=== PATIENT | male | born 1950 | race Caucasian/White ===

== ENCOUNTER → 2016-09-22 | Outpatient (CLI) | payer MEDICARE, BC ==
--- NOTE | 2016-09-22 12:43 | MR ---
MRI cervical spine and brain without contrast HISTORY: TIA, CVA, imbalanced, G45.9, R26.81 Multiplanar multisequence imaging obtained through the brain and cervical spine, no comparisons Brain MRI: There is no restricted diffusion to suggest subacute ischemia. No hemorrhage or hydrocepha dimas. Corpus callosum, pituitary, cervical medullary junction, cerebellopontine angles are normal. Mil d mucosal disease present within the maxillary sinuses. There are normal vascular flow voids. Periven tricular and subcortical white matter hyperintensities are present on inversion recovery and T2-weigh edgar sequences, there are approximately 50 lesions present. The orbits show symmetric appearance. Ther e is cortical atrophy. Small lacunar infarct left basal ganglia versus Choroidal fissure cyst is susp ected on the left, some minimal associated gliosis is present. IMPRESSION: Nonspecific white matter demyelination likely related to chronic small vessel ischemia. T here is age-related atrophy. Cervical spine MRI: There is spinal curvature present. There is a rotational component. Multilevel sp ondylosis is present, there is associated endplate discogenic marrow signal change. Anterolisthesis g rade 1 C4-5, retrolisthesis grade 1 C3-4. Loss of disc height and signal present at the intervertebra l levels. Cervical vertebral bodies show preserved height. C2-3: No significant foraminal encroachment or central stenosis, no disc herniation C3-4: Posterior extension of endplate disc complex results in moderate to severe central canal stenos is. Uncovertebral joint hypertrophy facet arthropathy results in bilateral foraminal encroachment. C4-5: Left-sided foraminal encroachment is present. Broad-based disc bulge causes only mild anterior mass effect on the thecal sac C5-6: Posterior extension of endplate disc complex results in severe central canal stenosis. There is bilateral foraminal encroachment. C6-7: Right-sided foraminal encroachment is present. Posterior extension of endplate disc complex res ults in moderate to severe central canal stenosis. C7-T1: Unremarkable Cervical cord signal is possibly altered, there may be areas of gliosis at the level of the patient's spinal stenosis. IMPRESSION: Multilevel spinal stenosis, degenerative disc disease, foraminal encroachment. Suspect so me cervical cord signal changes may be present. A Yellow message has been communicated to Tommy Silva DO via the [employer] Critical Result system on 09/22/2016 12:40 PM, Message ID [id number].
== END | disposition home or self-care (01) ==
LOC: RADMRIMAIN 09:00
PROVIDERS: ATTEND Psychiatry & Neurology Neurology
DX: M48.02 Spinal stenosis, cervical region (principal); M50.00 Cervical disc disorder with myelopathy, unspecified cervical region; G37.8 Other specified demyelinating diseases of central nervous system; R90.82 White matter disease, unspecified; G31.9 Degenerative disease of nervous system, unspecified; G45.9 Transient cerebral ischemic attack, unspecified
CPT/HCPCS: 70551; 72141

== ENCOUNTER → 2016-10-10 | Outpatient (CLI) | payer MEDICARE, BC ==
[2016-10-10 10:39] LABS: Basophils # (A) 0.1 k/uL (0-0.2); Basophils % (A) 1 %; CH 31.9; CHCM 33.7; Eosinophils # (A) 0.1 k/uL (0-0.7); Eosinophils % (A) 1 %; HCT 44.5 % (39.0-53.0); HDW 2.46; HGB 14.9 gm/dL (13.0-17.5); Luc # (Auto) 0.27; Luc % (Auto) 3; Lymphocytes # (A) 1.9 k/uL (1.0-4.8); Lymphocytes % (A) 22 %; MCH 31.8 pg (25.0-35.0); MCHC 33.5 g/dL (31.0-37.0); MCV 94.9 fL (80.0-100.0); Mean Platelet Volume 6.9; Monocytes # (A) 0.6 k/uL (0-1.0); Monocytes % (A) 7 %; Neutrophils # (A) 5.7 k/uL (1.3-7.7); Neutrophils % (A) 66 %; RBC 4.69 m/uL (4.30-5.90); RDW 13.7 % (11.5-15.5); WBC 8.6 k/uL (3.8-10.6); WBC (Perox) 8.98
[2016-10-10 10:53] LABS: ALT 37 U/L (21-72); AST 27 U/L (17-59); Alkaline Phosphatase 82 U/L (38-126); Anion Gap 9 mmol/L; Blood Urea Nitrogen 16 mg/dL (9-20); Calcium 9.8 mg/dL (8.4-10.2); Carbon Dioxide 23 mmol/L (22-30); Chloride 109 mmol/L (98-107); Glucose 94 mg/dL (74-99); Non-African American GFR(MDRD) >60 (>60 ml/min/1.73 sqM); Potassium 4.6 mmol/L (3.5-5.1); Sodium 141 mmol/L (137-145); Total Bilirubin 0.6 mg/dL (0.2-1.3); Total Protein 7.4 g/dL (6.3-8.2)
[2016-10-10 10:53] LABS: Appearance,Urine Clear (Clear); Bilirubin,Urine Negative (Negative); Glucose,Urine (UA) Negative (Negative); Ketones,Urine Negative (Negative); Leukocyte Esterase,Urine Negative (Negative); Nitrite,Urine Negative (Negative); PH, Urine 6.5 (5.0-8.0); Protein,Urine Negative (Negative); Specific Gravity,Urine 1.002 (1.001-1.035); UA Billing (MACRO vs. MICRO) CHEM; Urobilinogen,Urine <2.0 mg/dL (<2.0)
[2016-10-10 11:41] LABS: INR 1.1 (<1.1); Prothrombin Time 10.7 sec (9.0-12.0)
== END | disposition home or self-care (01) ==
LOC: LABWHC1 10:11
DX: Z01.812 Encounter for preprocedural laboratory examination (principal); M48.02 Spinal stenosis, cervical region
CPT/HCPCS: 36415; 80053; 81003; 85025; 85610; 85730

== ENCOUNTER → 2016-11-20 | Outpatient (CLI) | payer MEDICARE, BC ==
--- NOTE | 2016-11-20 15:44 | XR ---
EXAMINATION TYPE: XR cervical spine limited DATE OF EXAM: 11/20/2016 TECHNIQUE: Limited frontal and lateral views of the cervical spine are obtained as requested. HISTORY: M47.12 myelopathy COMPARISON: MRI cervical spine September 22, 2016 FINDINGS: There is new anterior fusion plate from C3 through C7 levels. There is artificial disc mate rial at these levels. C6-C7 and C7-T1 levels are suboptimally evaluated without dedicated swimmer's v iew. In addition C7 screws are suboptimally seen on lateral view due to shoulder overlap. Prevertebra l soft tissue is slightly thickened at C6 level presumed postsurgical. Alignment is satisfactory. Asy mmetric moderate to severe calcification left neck is likely at level of carotid bulb. The C1-C2 cem culation is not well evaluated without dedicated open mouth view. There is multilevel uncovertebral f acet arthropathy and marginal spurring particularly in the left neck noted. IMPRESSION: Interval surgery C3-C7 levels; visualized spine shows satisfactory alignment. Suboptimal evaluation lower cervical levels noted. Moderate to severe calcified plaque left carotid bulb suspect ed, consider carotid ultrasound follow-up.
== END | disposition home or self-care (01) ==
LOC: RADXRMAIN 12:37
DX: M47.12 Other spondylosis with myelopathy, cervical region (principal)
CPT/HCPCS: 72040

== ENCOUNTER → 2017-03-14 | Outpatient (CLI) | payer MEDICARE, BC ==
--- NOTE | 2017-03-14 15:40 | XR ---
Cervical spine HISTORY: Spondylosis 3 views of the cervical spine on 4 images correlated to prior exam 11/20/2016 There is no interval change. IMPRESSION: Stable postoperative findings.
== END | disposition home or self-care (01) ==
LOC: RADXRMAIN 11:49
DX: M47.12 Other spondylosis with myelopathy, cervical region (principal); Z98.890 Other specified postprocedural states
CPT/HCPCS: 72040

== ENCOUNTER 2017-09-14 07:37 | Day surgery (SDC) | payer MEDICARE, BC ==
[2017-09-13 10:11] VITALS: BMI 22.5
[2017-09-14] MEDS ORDERED: ceFAZolin IN SWFI 2 GM/20 ML SYRINGE IVP ONE ×2 (08:00→08:52)
[2017-09-14] MEDS ORDERED: SODIUM CHLORIDE 0.9% 1,000 ML IV SCH ×2 (08:00)
[2017-09-14] MEDS ORDERED: LIDOCAINE 2% INJ 20 MG/ML (20 ML MDV) ONE (08:38)
[2017-09-14] MEDS ORDERED: LIDOCAINE 2% INJ 20 MG/ML SQ ONE (08:53)
--- NOTE | 2017-09-14 09:28 | CE ---
CARDIAC ELECTROPHYSIOLOGY REPORT DATE OF SERVICE: 09/14/2017 PROCEDURE: Loop recorder insertion. PERFORMED BY: Dr. León Aj Moderate conscious sedation time 15 minutes. CLINICAL INFORMATION: Mr. Serge Beltran is a 67-year-old gentleman with a known history of paroxysmal A. Fib who had one episode of syncope. Prior to that on a event monitor, there was a question of a pause. However, he is maintaining sinus rhythm at this time. In view of his syncopal episode and abnormalities on the event recorder, which were equivocal, he was advised to have a loop recorder placement. Risks, benefits, options and rationale were explained. PROCEDURE NOTE: Under local anesthesia and strict aseptic precautions with the IV antibiotic being administered, a stab incision was made in the left 4th intercostal space. Using the insertion tool, the Medtronic Reveal LINQ device was inserted in the 4th intercostal space with a lateral orientation. A single suture was placed to close the stab incision. Patient tolerated the procedure well without complications. There was an excellent signal noted of 0.90 mV. DEVICE INFORMATION: Wooden Frame Builder Medtronic device model Reveal LINQ, LNQ11. Date of implantation was September 14. Serial #[id number]. The patient tolerated the procedure well and I discussed the details with the patient and his and I expect he will be discharged today and he will be seen in the office in one week. MMODL / IJN: [id number] /
[2017-09-14 09:45] VITALS: TEMP 98
[2017-09-14 11:35] VITALS: BP 138/72; PULSE 72; RESP 16
== END 2017-09-14 11:35 | disposition home or self-care (01) ==
LOC: CATHEP 07:37
PROVIDERS: ATTEND Internal Medicine Interventional Cardiology
DX: R55 Syncope and collapse (principal); I48.0 Paroxysmal atrial fibrillation
CPT/HCPCS: 33282; C1764; J2001; J0690

== ENCOUNTER → 2017-09-24 | Outpatient (CLI) | payer MEDICARE, BC ==
[2017-09-24 17:01] LABS: Basophils % (A) 0 %; Eosinophils # (A) 0.2 k/uL (0-0.7); Eosinophils % (A) 2 %; HCT 44.3 % (39.0-53.0); HGB 14.3 gm/dL (13.0-17.5); Lymphocytes # (A) 2.4 k/uL (1.0-4.8); Lymphocytes % (A) 24 %; MCH 29.5 pg (25.0-35.0); MCHC 32.2 g/dL (31.0-37.0); MCV 91.9 fL (80.0-100.0); Mean Platelet Volume 7.5; Monocytes # (A) 0.7 k/uL (0-1.0); Monocytes % (A) 7 %; Neutrophils # (A) 6.8 k/uL (1.3-7.7); Neutrophils % (A) 66 %; Platelet Count 248 k/uL (150-450); RBC 4.83 m/uL (4.30-5.90); RDW 13.5 % (11.5-15.5); WBC 10.2 k/uL (3.8-10.6)
[2017-09-24 17:13] LABS: Anion Gap 14 mmol/L; Blood Urea Nitrogen 14 mg/dL (9-20); Carbon Dioxide 23 mmol/L (22-30); Chloride 106 mmol/L (98-107); Potassium 4.2 mmol/L (3.5-5.1); Sodium 143 mmol/L (137-145)
== END | disposition home or self-care (01) ==
LOC: LABPAT 16:41
PROVIDERS: ATTEND Internal Medicine Interventional Cardiology
DX: Z01.812 Encounter for preprocedural laboratory examination (principal); I49.5 Sick sinus syndrome
CPT/HCPCS: 36415; 80051; 82565; 84520; 85025

== ENCOUNTER 2017-10-01 05:38 | Inpatient (IN) | payer MEDICARE, BC ==
[2017-09-26 15:09] VITALS: BMI 22.4
[2017-10-01] MEDS ORDERED: ceFAZolin IN SWFI 2 GM/20 ML SYRINGE IVP ONE (06:00)
[2017-10-01] MEDS ORDERED: SODIUM CHLORIDE 0.9% 1,000 ML IV SCH (06:00)
[2017-10-01] MEDS ORDERED: ceFAZolin 1,000 MG in SODIUM CHLORIDE 0.9% IRRIGATIO 250 ML IRRIGATION ONE (06:00)
[2017-10-01] MEDS ORDERED: IOPAMIDOL-250 50ML BTL IV ONE (07:11)
[2017-10-01] MEDS ORDERED: IV FLUID CONTINUATION 400 ML IV ONE (07:16)
[2017-10-01] MEDS ORDERED: MIDAZOLAM 2 MG/2 ML VIAL ONE (07:39)
[2017-10-01] MEDS ORDERED: MIDAZOLAM 2 MG/2 ML VIAL IV ONE (07:42)
[2017-10-01] MEDS: LIDOCAINE 2% INJ 20 MG/ML SQ ONE ×2 (07:48→07:56)
[2017-10-01] MEDS ORDERED: fentaNYL (PF) 50 MCG/ML 2 ML AMP ONE (07:51)
[2017-10-01] MEDS ORDERED: fentaNYL (PF) 50 MCG/ML 2 ML AMP IV ONE (07:52)
[2017-10-01] MEDS ORDERED: LIDOCAINE 2% INJ 20 MG/ML SQ ONE (08:03)
[2017-10-01] MEDS ORDERED: ACETAMINOPHEN TAB 325 MG TAB PO PRN (09:31)
--- NOTE | 2017-10-01 10:26 | LTR ---
Dear Dr. Oliveira: Thank you for the opportunity to participate in the care of Mr. Beltran. I performed a dual-chamber pacemaker on this gentleman uneventfully. I expect he will be discharged tomorrow and we will recheck the device in the morning and chest x-ray prior to discharge. Thank you for your referral and please do call for questions. With kindest regards, Sincerely yours, JAVON / DAPHENYN: [id number] /
--- NOTE | 2017-10-01 10:26 | PCN ---
PROCEDURE NOTE DATE OF SERVICE: October 01, 2017. PROCEDURE PERFORMED: Dual-chamber permanent pacemaker placement from left infraclavicular, left infraclavicular location. PERFORMED BY: Dr. León Aj. SEDATION: Moderate conscious sedation time was 1 hour 43 minutes. The patient was administered a combination of Versed and fentanyl and his oxygen saturation was monitored closely. CLINICAL INFORMATION: Mr. Beltran is a 67-year-old gentleman with a history of paroxysmal atrial fibrillation and episodes of syncope and collapse which were again confirmed with a loop recorder that suggested that he had more than 4.0 second pause with symptoms. He was therefore advised to have a dual-chamber pacemaker and brought in for the procedure electively after due discussion regarding risks, benefits, and options. PROCEDURE NOTE: Under local anesthesia and strict aseptic precautions an access point was achieved into the left axillary vein under fluoroscopic guidance. I then made a linear incision about 1.5 inch medial and an inch below the clavicle and the linear incision was parallel to the left deltopectoral groove. Blunt dissection with cautery was performed. A subfascial pocket was made. A sponged drenched with antibiotic was left in the pocket. The 2nd access point was also achieved right medial to the previous access point into the left axillary vein. Under fluoroscopic guidance, an active ventricular lead was positioned at the apex. Good thresholds and sensitivities were obtained. This lead was then secured with 2 separate sutures. I then he using a 6- Guamanian introducer into the axillary vein, I advanced an active atrial lead but I had a lot of difficulties screwing it in. I then took this lead out and exchanged the existing 6-Guamanian introducer to a 7-Guamanian introducer and used a mihir lead. This mihir lead was positioned in the right atrial appendage. The good thresholds and sensitivities were obtained. The lead was then secured with 2 separate sutures with a 0-silk. Both the leads were again double-checked. 10 V pacing was also checked. Multiple views were used to verify the lead positions of both atrium and the atrial and ventricular leads. The leads were then connected to the pulse generator. The pocket was then closed in 2 layers after irrigation with an antibiotic. Excellent hemostasis was secured. Patient tolerated the procedure well without complications. He will have a chest x-ray today, portable and tomorrow a two-view chest x-ray and device will be again checked in the morning. The details of the device: Pulse generator funeral director's assistant is [employer], model Assurity MRI 2272 pacemaker, serial #[id number]. Ventricular lead [employer] Tendril SDS 8 TC/88, serial number [id number]. The location of the lead was in the right ventricular apex. Atrial lead funeral director's assistant [employer] model Isoflex optima 1944/52, serial number [id number]. Located in the right atrial appendage. This was a mihir lead. Atrial threshold was 0.75 V at 0.4 milliseconds. P-waves were variable but average was 2.0-3.0. Lead impedance was 610 ohms. Ventricular lead threshold was 0.75 V at 0.4 milliseconds. R-waves are more than 12.0. Lead impedance was 640 ohms. The pacemaker parameters: Lower rate was set at 50, high rate at 110, paced delay was 275, and sensed delay was 250 milliseconds. The patient tolerated the procedure well. I will be reviewing the chest x-ray and he will be sent to the room in a stable condition and possible discharge tomorrow. The details were discussed with the patient's . MMODL / IJN: [id number] /
--- NOTE | 2017-10-01 11:21 | XR ---
EXAMINATION TYPE: XR chest 1V portable DATE OF EXAM: 10/01/2017 COMPARISON: NONE HISTORY: Lead placement check. TECHNIQUE: Single frontal view of the chest is obtained. FINDINGS: There is fairly moderate size left superiorly and laterally estimated 25-30%. There is ass ociated left basilar atelectasis. No mediastinal shift is present. There is lateral right basilar pieter ear atelectasis. Right lung is otherwise clear. Cardiac silhouette size is within normal limits. Dual lead pacemaker has leads projecting over right atrium and ventricle. There is long segment anterior fusion plate in the cervical spine. IMPRESSION: Fairly moderate size left pneumothorax. Critical results communicated to catheter lab nurse via telephone at time of dictation.
[2017-10-01] MEDS: ceFAZolin IN SWFI 2 GM/20 ML SYRINGE IVP SCH ×2 (14:00→19:08)
[2017-10-01] MEDS ORDERED: MORPHINE SULFATE 4 MG/0.8 ML SYRINGE (INJ) IM STA (14:06)
--- NOTE | 2017-10-01 14:37 | XR ---
EXAMINATION TYPE: XR chest 1V portable DATE OF EXAM: 10/01/2017 COMPARISON: 10/01/2017 HISTORY: Thoracostomy tube placement TECHNIQUE: Single frontal view of the chest is obtained. FINDINGS: The previously seen left-sided pneumothorax has resolved in the interim, status post place ment of a left thoracostomy tube overlying the left lower lung oriented towards the mediastinum. Ther e is left hemithorax volume loss similar to the prior with left hemidiaphragm elevation and left basi lar atelectasis. Remainder the lungs are clear. Moderate acromioclavicular arthropathy is seen. Dual lead left-sided cardiac device is noted. Cardiomediastinal silhouette is nonenlarged. Cervical fusion device is partially visualized. IMPRESSION: Resolution of the previously seen left-sided pneumothorax status post placement of a lef t-sided thoracostomy tube. Minimal left basilar subsegmental atelectasis and left hemithorax volume l oss remain.
[2017-10-01] MEDS ORDERED: MORPHINE SULF 5MG/10ML VL ONE (17:32)
[2017-10-01] MEDS: MORPHINE SULFATE 4 MG/ML SYRINGE IVP PRN ×2 (17:45→22:59)
--- NOTE | 2017-10-01 20:20 | PN ---
PROGRESS NOTE Mr. Beltran underwent a permanent pacemaker, dual-chamber, which was performed by me earlier today. Following the procedure, the patient was quite stable. A routine chest x-ray revealed that there was a 25% pneumothorax. I requested Dr. Bolanos to see the patient. After reviewing the chest x-ray, Dr. Bolanos placed a chest tube with full expansion of the lung with resolution of the pneumothorax. The chest tube will be left in overnight. Tomorrow we will repeat a chest x-ray and possibly pull the chest tube. The details of the pneumothorax and the complication related to the access into the axillary artery were explained to the patient and his in detail. They understand the situation well. I am giving some morphine sulfate for pain control. The patient will be evaluated tomorrow by Dr. Cruz and chest tube will be probably pulled. Vital signs are stable. Oxygen saturation has continued to be good. Patient is hemodynamically stable. The pacemaker is functioning well. Tomorrow pacer will be checked. Chest x-ray will be repeated and hopefully the chest tube will be pulled. Discussed with the patient and his in detail the events and the complication that occurred. MMODL / IJN: [id number] /
[2017-10-01] MEDS: ATORVASTATIN 20 MG TAB PO SCH (21:21)
[2017-10-01] MEDS: TAMSULOSIN 0.4 MG CAP.ER.24H PO SCH (21:21)
[2017-10-01] MEDS: LORazepam 1 MG TAB PO PRN (23:33)
[2017-10-02] MEDS: ceFAZolin IN SWFI 2 GM/20 ML SYRINGE IVP SCH ×2 (00:30→06:08)
[2017-10-02] MEDS: MORPHINE SULFATE 4 MG/ML SYRINGE IVP PRN ×2 (03:31→09:20)
[2017-10-02 06:47] LABS: Basophils % (A) 0 %; Eosinophils # (A) 0.2 k/uL (0-0.7); Eosinophils % (A) 2 %; HCT 42.9 % (39.0-53.0); HGB 13.7 gm/dL (13.0-17.5); Lymphocytes # (A) 2.2 k/uL (1.0-4.8); Lymphocytes % (A) 23 %; MCHC 31.9 g/dL (31.0-37.0); Mean Platelet Volume 7.4; Monocytes # (A) 0.6 k/uL (0-1.0); Monocytes % (A) 7 %; Neutrophils # (A) 6.2 k/uL (1.3-7.7); Neutrophils % (A) 66 %; Platelet Count 208 k/uL (150-450); RBC 4.56 m/uL (4.30-5.90); RDW 13.7 % (11.5-15.5); WBC 9.4 k/uL (3.8-10.6)
[2017-10-02 06:51] LABS: Anion Gap 10 mmol/L; Blood Urea Nitrogen 12 mg/dL (9-20); Calcium 9.2 mg/dL (8.4-10.2); Carbon Dioxide 30 mmol/L (22-30); Chloride 104 mmol/L (98-107); Glucose 94 mg/dL (74-99); Potassium 5.2 mmol/L (3.5-5.1); Sodium 144 mmol/L (137-145)
--- NOTE | 2017-10-02 07:52 | XR ---
EXAMINATION TYPE: XR chest 1V portable DATE OF EXAM: 10/02/2017 COMPARISON: Prior chest 10/01/2017 HISTORY: Pneumothorax, chest tube TECHNIQUE: Single frontal view of the chest is obtained. FINDINGS: Left-sided chest tube is stable. No sizable pneumothorax is evident. Patchy basilar densit y persists. Heart size is stable. Pacemaker is unchanged. There are overlying cardiac leads. Postop c hange noted to the cervical spine. IMPRESSION: Similar to previous exam. Probable basilar atelectasis. Chest tube is stable.
[2017-10-02] MEDS ORDERED: APIXABAN 5 MG TAB PO SCH (09:00)
--- NOTE | 2017-10-02 15:26 | P.PN ---
Subjective Progress Note Date: 10/02/17 Principal diagnosis: Dyslipidemia, family history of coronary artery disease less than 60 years of age, hypertension, history of TIA, paroxysmal atrial fibrillation currently taking Eliquis, history of syncopal event and collapse. POD #1 placement of a dual-chamber permanent pacemaker, placement from left infraclavicular location performed by Dr. ANAY Aj from cardiology. Left pneumothorax post permanent pacemaker placement, with left pleural chest tube placement. Patient is sitting in bed with his head elevated. He is in no acute distress. He denies any complaints of pain or shortness of breath at this time. Currently has a left arm sling in place. He reports since the chest tube has been placed he has had no further complaints of coughing or shortness of breath. Objective - Vital Signs Vital signs: Vital Signs Temp 97.5 F L 10/02/17 12:00 Pulse 88 10/02/17 12:36 Resp 16 10/02/17 12:00 BP 122/74 10/02/17 12:00 Pulse Ox 92 L 10/02/17 12:36 Intake & Output 10/01/17 10/02/17 10/02/17 18:59 06:59 18:59 Intake Total 400 646 Output Total 260 10 0 Balance 140 -10 646 Weight 73.8 kg Intake: IV 200 Sodium Chloride 0.9% 1, 50 000 ml @ 50 mls/hr IV . Q20H KACEY Rx#:[id number] Intake, IV Titration 200 Amount Sodium Chloride 0.9% 1, 200 000 ml @ 50 mls/hr IV . Q20H KACEY Rx#:[id number] Oral 646 Output: Chest Tube Drainage 10 10 0 Left 10 10 0 Urine 250 Other: Voiding Method Urinal Urinal Toilet # Voids 1 1 # Bowel Movements 1 - Constitutional General appearance: Present: cooperative, no acute distress - Respiratory Details: Lungs sounds essentially clear throughout, diminished to his bilateral bases. Respirations are symmetrical and nonlabored. Oxygen saturation are 93% on room air. Left pleural chest tube in place to low continuous wall suction -20 cm H2O. No air leak present. Draining thin serosanguineous drainage. 10 mL output in the last 24 hours. - Cardiovascular Details: Regular rhythm and rate. S1 and S2 present, negative for S3, gallop or murmur. Remote telemetry showing normal sinus rhythm heart rate 71. No edema present. Knee-high sequential compression devices in place to his bilateral lower extremities. - Gastrointestinal Gastrointestinal Comment(s): Abdomen is soft, nontender and nondistended. Active bowel sounds to all 4 abdominal quadrants. Passing flatus. Tolerating oral intake. - Genitourinary Genitourinary Comment(s): Voiding clear yellow urine. - Integumentary Integumentary Comment(s): Skin is warm and dry. No clubbing or cyanosis present. Left infraclavicular dressing clean and dry. No drainage present. - Neurologic Neurologic: Present: CNII-XII intact - Musculoskeletal Musculoskeletal: Present: gait normal, strength equal bilaterally - Psychiatric Psychiatric: Present: A&O x's 3, appropriate affect, intact judgment & insight - Allied health notes Allied health notes reviewed: nursing - Labs CBC & Chem 7: 10/02/17 06:22 10/02/17 06:22 Labs: Abnormal Lab Results - Last 24 Hours (Table) 10/02/17 Range/Units 06:22 Potassium 5.2 H (3.5-5.1) mmol/L - Imaging and Cardiology Chest x-ray: report reviewed, image reviewed Assessment and Plan (1) History of hypertension Current Visit: Yes Status: Acute Code(s): Z86.79 - PERSONAL HISTORY OF OTHER DISEASES OF THE CIRCULATORY SYSTEM SNOMED Code(s): 708168786 (2) Hyperlipidemia Current Visit: Yes Status: Acute Code(s): E78.5 - HYPERLIPIDEMIA, UNSPECIFIED SNOMED Code(s): 73921493 (3) History of TIA (transient ischemic attack) Current Visit: Yes Status: Acute Code(s): Z86.73 - PRSNL HX OF TIA (TIA), AND CEREB INFRC W/O RESID DEFICITS SNOMED Code(s): 102440824 (4) Paroxysmal atrial fibrillation Current Visit: Yes Status: Acute Code(s): I48.0 - PAROXYSMAL ATRIAL FIBRILLATION SNOMED Code(s): 541206069 (5) Anticoagulation therapy continued upon discharge Current Visit: Yes Status: Acute Code(s): PCV6676 - SNOMED Code(s): 007704182 (6) History of syncope Current Visit: Yes Status: Acute Code(s): Z87.898 - PERSONAL HISTORY OF OTHER SPECIFIED CONDITIONS SNOMED Code(s): 637466984051968 Plan: 1. We will discontinue his left pleural chest tube. 2. We will obtain a chest x-ray 1 hour post chest tube removal. 3. He is okay to be discharged home when okay with cardiology. Time with Patient: Greater than 30
--- NOTE | 2017-10-02 15:31 | XR ---
EXAMINATION TYPE: XR chest 1V portable DATE OF EXAM: 10/02/2017 COMPARISON: Prior chest x-ray 10/02/2017 HISTORY: Status post chest tube removal TECHNIQUE: Single frontal view of the chest is obtained. FINDINGS: There is been interval left chest tube. Minimal apical pneumothorax may be present. Basila r atelectatic changes persist on the left, there is some improvement in aeration at the right lung ba se. No other significant interval change. Postop changes, overlying loop recorder are present. IMPRESSION: Status post chest tube removal, minimal apical pneumothorax may be present. Improvement in aeration.
[2017-10-02] MEDS: TAMSULOSIN 0.4 MG CAP.ER.24H PO SCH (20:48)
[2017-10-02] MEDS: ATORVASTATIN 20 MG TAB PO SCH (20:48)
--- NOTE | 2017-10-02 23:14 | PN ---
PROGRESS NOTE This patient is status post permanent pacemaker. Patient's course was complicated by pneumothorax and he underwent chest tube placement. Chest tube was removed today. Patient has minimal apical pneumothorax. Patient remains comfortable. Patient's respirations are not labored. Blood pressure is 143/82 mmHg. First and second heart sounds are normal. Lungs reveal good air entry on both sides. Patient will be ambulated, and if he remains stable he will be discharged tomorrow. MMODL / IJN: [id number] /
[2017-10-02] MEDS: LORazepam 1 MG TAB PO PRN (23:18)
[2017-10-03] MEDS ORDERED: CEPHALEXIN 500 MG CAP PO STA (07:41)
--- NOTE | 2017-10-03 08:22 | XR ---
EXAMINATION TYPE: XR chest 2V DATE OF EXAM: 10/03/2017 COMPARISON: 10/02/2017 TECHNIQUE: PA and lateral views submitted. HISTORY: Post chest tube removal FINDINGS: Tiny left apical pneumothorax persists measuring 5% or less. Subsegmental consolidation at the left l lukas base and elevated hemidiaphragm are stable. Cardiac device and leads are stable with some coiling of the proximal lead. Underlying COPD suspected. Hypertrophic and degenerative change of the spine n oted. Surgical change overlying the cervical spine. IMPRESSION: 1. Stable 5% or less left apical pneumothorax, basilar consolidation and elevated left diaphragm.
[2017-10-03] MEDS ORDERED: MORPHINE ORAL SOLN 10 MG/5 ML CUP PO PRN (08:28)
[2017-10-03 08:56] VITALS: BP 121/79; PULSE 89; RESP 16; TEMP 97.2
--- NOTE | 2017-10-03 10:24 | P.PN ---
Subjective Progress Note Date: 10/03/17 Principal diagnosis: Status post permanent pacemaker implantation This is a 67-year-old gentleman who is status post implantation of a permanent pacemaker. Patient's course was complicated by pneumothorax and he underwent chest tube placement which was discontinued yesterday. Repeat chest x-ray performed today revealed a stable 5% or less left apical pneumothorax, basilar consolidation and elevated left diaphragm. Blood pressure 120/70 with a heart rate in the 80s, 92% on room air. Patient has been up ambulating, feels well. Objective - Vital Signs Vital signs: Vital Signs Temp 97.2 F L 10/03/17 08:00 Pulse 89 10/03/17 08:00 Resp 16 10/03/17 08:00 BP 121/79 10/03/17 08:00 Pulse Ox 92 L 10/03/17 08:00 Intake & Output 10/02/17 10/03/17 10/03/17 18:59 06:59 18:59 Intake Total 646 120 Output Total 0 Balance 646 120 Weight 73.7 kg Intake: Oral 646 120 Output: Chest Tube Drainage 0 Left 0 Other: Voiding Method Toilet Toilet # Voids 1 1 2 # Bowel Movements 1 - Exam PHYSICAL EXAMINATION: HEENT: Head is atraumatic, normocephalic. Pupils equal, round. Neck is supple. There is no elevated jugular venous pressure. HEART EXAMINATION: Heart S1, S2 normal. No murmur or gallop heard. Site of pacemaker implantation, dressing is dry and intact. CHEST EXAMINATION: Lungs are clear to auscultation and precussion. No chest wall tenderness is noted on palpation or with deep breathing. ABDOMEN: Soft, nontender. Bowel sounds are heard. No organomegaly noted. EXTREMITIES: 2+ peripheral pulses with no evidence of peripheral edema and no calf tenderness noted. NEUROLOGIC patient is awake, alert and oriented -3. . - Labs CBC & Chem 7: 10/02/17 06:22 10/02/17 06:22 Assessment and Plan Plan: Assessment and plan #1 status post implantation of permanent pacemaker, complicated by pneumothorax , chest x-ray today reveals less than 5% pneumothorax. #2 paroxysmal atrial fibrillation #3 history of syncope, status post implantation of loop recorder which revealed a greater than 4 second pass. Plan Patient will be discharged home today, he has a follow-up appointment made with Dr. León Aj in the office in one week. Patient will be discharged home on Lipitor 20 mg daily, Keflex by mouth, Flomax 0.4 mg daily. Toprol 12-1/2 mg daily, simvastatin 40 mg daily. Eliquis 5mg one tablet by mouth twice a day. DNP note has been reviewed, I agree with a documented findings and plan of care. Patient was seen and examined.
--- NOTE | 2017-10-03 10:25 | P.PN ---
Progress Note - Text Progress Note Date: 10/03/17 This is an addendum to the cardiology progress note dictated earlier, please use as a discharge note. DNP note has been reviewed, I agree with a documented findings and plan of care. Patient was seen and examined.
== END 2017-10-03 09:55 | disposition home or self-care (01) | DRG 201 ==
LOC: CATHEP 05:38 → 6SEL 09:27 → 3OBS 09:27 → 6SEL 15:00 → CATHEP 10-03 07:59 → 6SEL 10-03 08:29
PROVIDERS: ADMIT Internal Medicine Interventional Cardiology; ATTEND Internal Medicine Interventional Cardiology
PROC: 0JH606Z Insertion of Pacemaker, Dual Chamber into Chest Subcutaneous Tissue and Fascia, Open Approach (ICD-10-PCS; 2017-10-01)
PROC: 02H63JZ Insertion of Pacemaker Lead into Right Atrium, Percutaneous Approach (ICD-10-PCS; 2017-10-01)
PROC: 02HK3JZ Insertion of Pacemaker Lead into Right Ventricle, Percutaneous Approach (ICD-10-PCS; 2017-10-01)
PROC: 0W9B30Z Drainage of Left Pleural Cavity with Drainage Device, Percutaneous Approach (ICD-10-PCS; principal; 2017-10-01 07:15)
DX: J95.811 Postprocedural pneumothorax (principal); I49.5 Sick sinus syndrome; I48.0 Paroxysmal atrial fibrillation; I10 Essential (primary) hypertension; E78.5 Hyperlipidemia, unspecified; Z79.01 Long term (current) use of anticoagulants; Z79.899 Other long term (current) drug therapy; Z87.891 Personal history of nicotine dependence; Z86.73 Personal history of transient ischemic attack (TIA), and cerebral infarction without residual deficits; Z88.7 Allergy status to serum and vaccine; Z82.3 Family history of stroke; Z82.49 Family history of ischemic heart disease and other diseases of the circulatory system; Y83.1 Surgical operation with implant of artificial internal device as the cause of abnormal reaction of the patient, or of later complication, without mention of misadventure at the time of the procedure
CPT/HCPCS: 33208; 71045; 71046; 80048; 83735; 85025

== ENCOUNTER → 2017-10-11 | Outpatient (CLI) | payer MEDICARE, BC ==
--- NOTE | 2017-10-11 10:15 | XR ---
EXAMINATION TYPE: XR chest 2V DATE OF EXAM: 10/11/2017 COMPARISON: 10/03/2017 TECHNIQUE: PA and lateral views submitted. HISTORY: History of pneumothorax FINDINGS: The lungs are clear and there is no pneumothorax, pleural effusion, or focal pneumonia. Cardiac brigida ce and postsurgical changes overlying the cervical spine. Hyperinflation suggests COPD. No overt fail ure. Arthropathy of the shoulders and degenerative change of the spine. Chronic rib deformity on the left suggest previous trauma. Tiny less than 5% apical pneumothorax is reduced in size. IMPRESSION: 1. Near complete resolution of tiny less than 5% left apical pneumothorax.
[2017-10-11 10:22] LABS: HCT 43.1 % (39.0-53.0); HGB 14.4 gm/dL (13.0-17.5); MCH 30.6 pg (25.0-35.0); MCHC 33.4 g/dL (31.0-37.0); MCV 91.5 fL (80.0-100.0); Mean Platelet Volume 7.2; Platelet Count 250 k/uL (150-450); RBC 4.71 m/uL (4.30-5.90); RDW 13.5 % (11.5-15.5)
[2017-10-11 10:55] LABS: Anion Gap 14 mmol/L; Blood Urea Nitrogen 16 mg/dL (9-20); Calcium 9.6 mg/dL (8.4-10.2); Carbon Dioxide 24 mmol/L (22-30); Chloride 105 mmol/L (98-107); Glucose 95 mg/dL (74-99); Potassium 4.4 mmol/L (3.5-5.1); Sodium 143 mmol/L (137-145)
== END | disposition home or self-care (01) ==
LOC: RADXRMAIN 09:06
PROVIDERS: ATTEND Internal Medicine Interventional Cardiology
DX: Z09 Encounter for follow-up examination after completed treatment for conditions other than malignant neoplasm (principal); I48.0 Paroxysmal atrial fibrillation; Z87.09 Personal history of other diseases of the respiratory system
CPT/HCPCS: 36415; 71046; 80048; 85027

== ENCOUNTER 2017-10-15 06:14 | Day surgery (SDC) | payer MEDICARE, BC ==
[2017-10-12 08:42] VITALS: BMI 22.4
[2017-10-15] MEDS ORDERED: ceFAZolin IN SWFI 2 GM/20 ML SYRINGE IVP ONE (06:30)
[2017-10-15] MEDS ORDERED: ceFAZolin 1,000 MG in SODIUM CHLORIDE 0.9% IRRIGATIO 250 ML IRRIGATION ONE (06:30)
[2017-10-15] MEDS: SODIUM CHLORIDE 0.9% 1,000 ML IV SCH ×2 (07:06→10:01)
[2017-10-15] MEDS ORDERED: IODIXANOL 320 MG/ML 100 ML IV ONE (07:42)
[2017-10-15] MEDS: fentaNYL (PF) 50 MCG/ML 2 ML AMP IV ONE ×2 (07:49→09:04)
[2017-10-15] MEDS ORDERED: MIDAZOLAM 2 MG/2 ML VIAL IV ONE (07:59)
[2017-10-15] MEDS: LIDOCAINE 1% INJ 10MG/ML (20 ML MDV) SQ ONE ×2 (08:03→09:04)
[2017-10-15] MEDS ORDERED: ACETAMINOPHEN TAB 325 MG TAB PO PRN (08:50)
--- NOTE | 2017-10-15 08:50 | P.PCN ---
Date of Procedure: 10/15/17 Preoperative Diagnosis: Atrial lead dislodgment with a diaphragmatic stimulation. Postoperative Diagnosis: Repositioning of the atrial lead under fluoroscopy. Procedure(s) Performed: Axillary venography, freeing of the lead in the atrium and repositioning of the lead. Description of Procedure: This is a 67-year-old gentleman who had a permanent pacemaker implantation performed on 10/01/2017. Follow-up in the office showed that patient has been having diaphragmatic stimulation with atrial pacing. Subsequent x-ray showed dislodgment of the atrial lead. Patient is advised to have repositioning of the atrial lead and possible replacement, if necessary. Patient was brought to the lab in a fasting state. He was prepped and draped in the usual fashion. Patient was given IV sedation with 2 mg of Versed and 50 mics of fentanyl. CONSENT: I have discussed the risks and benefits as related to the above mentioned procedure and both sedation/analgesia as well as necessary blood product administration. The patient has indicated understanding and acceptance of the risks of the procedure discussed. PROCEDURE: Patient was brought to the lab in a fasting state. Patient was given IV Versed and fentanyl for sedation. The skin over the existing pulse generator was infiltrated with lidocaine. An incision was made in the skin and was deepened until the pectoral fascia was exposed. Hemostasis was obtained. The existing pulse generator was pulled out of the pocket. The atrial lead was disconnected and an with help of a straight stylet the atrial lead was medicated until it was positioned in the atrial appendage. Threshold measurements were obtained which were very satisfactory. The lead was then connected to the pulse generator. Conscious Sedation: Versed 2 mg Fentanyl 50 g Duration 35 minutes THRESHOLDS: ATRIAL:. 0.5 V at a pulse width of 0.4 ms. The impedance is 6 and 40 ohms. P-wave: More than 5 mV VENTRICULAR: 0.75 V at pulse width of 0.4 ms. The impedance is 490 ohms R-wave: 12 mV THE LEADS: ATRIAL:. This is manufactured by [employer]. Model number is [id number] and the serial number is [id number]. VENTRICULAR: This is manufactured by [employer]. Model number is [id number] and the serial number is [id number] THE DEVICE: This is manufactured by [employer]. Model number is [id number] and the serial number is [id number] The leads were then connected to a new pulse generator. Pacemaker seems to function normally. The pocket was irrigated with antibiotics. The pocket was closed in the usual fashion. Pectoral fascia was closed with 2-0 Prolene, the subcutaneous tissue was closed with 3-0 Prolene and the skin was closed with 4- 0 Prolene. Patient tolerated the procedure well . Patient will be monitored on the telemetry unit for 24 hours. If stable patient will be discharged home tomorrow PLAN: Admit to telemetry unit. Monitoring for 24 hours. Continue prophylactic antibiotics FALLOW UP: With Dr. ANAY Aj in a week.
--- NOTE | 2017-10-15 09:08 | P.PCN ---
Date of Procedure: 10/15/17 Preoperative Diagnosis: History of loop recorder insertion Postoperative Diagnosis: Removal of the recorder Procedure(s) Performed: Extraction of the loop recorder under local anesthesia Description of Procedure: This is a 67-year-old gentleman who had a loop recorder insertion of dizziness. Patient subsequently had a permanent pacemaker. Patient was brought in for removal of the loop recorder. Patient was given IV fentanyl for moderate conscious sedation. Patient got 50 g of fentanyl. Patient is continuously monitored. The skin over the medial aspect of the existing loop recorder was infiltrated with lidocaine. An incision on made in the skin and deepened until the head of the loop recorder was exposed. This was carefully pulled out of the pocket. Patient tolerated the procedure well. Stay sutures were applied for closing the incision. Final impression: #1. Successful removal of the loop recorder. Plan. Patient be discharged home tomorrow.
[2017-10-15] MEDS ORDERED: LORazepam 1 MG TAB PO PRN (09:31)
[2017-10-15] MEDS: METOPROLOL SUCCINATE (ER) 25 MG TAB.ER.24H PO SCH (10:44)
[2017-10-15] MEDS: TAMSULOSIN 0.4 MG CAP.ER.24H PO SCH (10:44)
[2017-10-15] MEDS: ceFAZolin IN SWFI 2 GM/20 ML SYRINGE IVP SCH ×2 (14:21→20:58)
[2017-10-15] MEDS: MORPHINE SULFATE 4 MG/ML SYRINGE IVP PRN ×3 (14:29→21:52)
[2017-10-15 19:45] VITALS: RESP 16
[2017-10-15] MEDS ORDERED: ATORVASTATIN 20 MG TAB PO SCH (21:00)
[2017-10-16] MEDS: ceFAZolin IN SWFI 2 GM/20 ML SYRINGE IVP SCH ×2 (03:19→08:33)
[2017-10-16] MEDS: SODIUM CHLORIDE 0.9% 1,000 ML IV SCH ×2 (03:21)
[2017-10-16] MEDS: MORPHINE SULFATE 4 MG/ML SYRINGE IVP PRN ×2 (03:24→08:44)
[2017-10-16 08:06] VITALS: BP 118/62; PULSE 79; TEMP 98.5
--- NOTE | 2017-10-16 08:16 | XR ---
EXAMINATION TYPE: XR chest 2V DATE OF EXAM: 10/16/2017 COMPARISON: Prior chest x-ray 10/11/2017 HISTORY: Lead placement check TECHNIQUE: Frontal and lateral views of the chest are obtained. FINDINGS: The patient is rotated. Generator is present in the left pectoral region and is slightly ro tated since prior exam, there are leads in the right atrium and ventricle. Patchy basilar density is present. No evident pneumothorax or pleural effusion. Postop changes again noted to the cervical spin e, there are overlying cardiac leads. Cardiac mediastinal silhouette, pulmonary vascularity and kartik are stable. Loop recorder has been removed. IMPRESSION: Basilar atelectasis. No evident complication status post pacemaker placement, pneumothor ax no longer evident. Additional findings above.
[2017-10-16] MEDS: TAMSULOSIN 0.4 MG CAP.ER.24H PO SCH (08:33)
[2017-10-16] MEDS: METOPROLOL SUCCINATE (ER) 25 MG TAB.ER.24H PO SCH (08:34)
--- NOTE | 2017-10-16 10:28 | P.DS ---
Providers Date of admission: 10/15/2017 Attending physician: Pebbles Carrera Primary care physician: Petr Oliveira - Discharge Diagnosis(es) (1) Pacemaker displacement Current Visit: Yes Status: Acute (2) History of TIA (transient ischemic attack) Current Visit: No Status: Acute (3) History of hypertension Current Visit: No Status: Acute (4) History of syncope Current Visit: No Status: Acute (5) Hyperlipidemia Current Visit: No Status: Acute (6) Paroxysmal atrial fibrillation Current Visit: No Status: Acute Hospital Course: This is a 67-year-old gentleman who recently had a permanent pacemaker implantation. On follow-up visits, it was felt that his atrial pacemaker lead was dislodged. Patient was brought back to the position of the atrial lead. Patient had successful repositioning of the lead, Yesterday. Patient has remained stable overnight. Denies any chest pain, shortness of breath or dizziness. There is a local pain at the site of the pocket. No hematoma. No arrhythmias are detected. Chest x-ray showed proper lead position. Threshold measurements remained stable with excellent patient threshold. Patient is being discharged home today. Patient is given usual post pacemaker insertion instructions. He is advised to not to lift, pull or push and also keep the area dry for and to seen in the office. Patient is advised not to lift his left arm above the shoulder level. He is instructed to call our office if patient ANY undue swelling, pain, fever or chills. Follow-up with Dr. ANAY Aj in one week Plan - Discharge Summary Discharge Rx Participant: Yes New Discharge Prescriptions: Continue rOPINIRole HCL [Requip] 0.25 mg PO HS PRN PRN Reason: restless leg Simvastatin [Zocor] 40 mg PO HS LORazepam [Ativan] 1 mg PO BID PRN PRN Reason: Anxiety Tamsulosin HCl [Flomax] 0.4 mg PO DAILY Metoprolol Succinate (ER) [Toprol XL] 12.5 mg PO DAILY #45 tab Discontinued Apixaban [Eliquis] 5 mg PO BID Discharge Medication List LORazepam [Ativan] 1 mg PO BID PRN 09/13/17 [History] Simvastatin [Zocor] 40 mg PO HS 09/13/17 [History] Tamsulosin HCl [Flomax] 0.4 mg PO DAILY 09/13/17 [History] rOPINIRole HCL [Requip] 0.25 mg PO HS PRN 09/13/17 [History] Metoprolol Succinate (ER) [Toprol XL] 12.5 mg PO DAILY #45 tab 10/03/17 [Rx] Follow up Appointment(s)/Referral(s): Flynn Aj MD [STAFF PHYSICIAN] - 1 Week (office will call pt with follow up appointment ) Discharge Disposition: HOME SELF-CARE
== END 2017-10-16 10:47 | disposition home or self-care (01) ==
LOC: CATHEP 06:14 → 3OBS 08:35 → CATHEP 10-16 10:47
PROVIDERS: ATTEND Internal Medicine Cardiovascular Disease
DX: T82.128A Displacement of other cardiac electronic device, initial encounter (principal); J98.11 Atelectasis; I48.0 Paroxysmal atrial fibrillation; I10 Essential (primary) hypertension; R55 Syncope and collapse; E78.5 Hyperlipidemia, unspecified; I49.5 Sick sinus syndrome; Z86.73 Personal history of transient ischemic attack (TIA), and cerebral infarction without residual deficits; Z82.49 Family history of ischemic heart disease and other diseases of the circulatory system; Z88.7 Allergy status to serum and vaccine; Z87.891 Personal history of nicotine dependence; Z79.01 Long term (current) use of anticoagulants; Z79.899 Other long term (current) drug therapy
CPT/HCPCS: 33284; 33226; 71046; J2250; J2270 ×2; Q9967; J2001; J3010; J0690 ×2

== ENCOUNTER 2017-10-17 14:17 | Emergency (ER) | payer MEDICARE, BC ==
[2017-10-17] MEDS ORDERED: SODIUM CHLORIDE 0.9% 500 ML IV STA (14:31)
[2017-10-17] MEDS ORDERED: SODIUM CHLORIDE 0.9% 1,000 ML IV STA (14:31)
--- NOTE | 2017-10-17 15:03 | ED ---
General Adult HPI - General Chief complaint: Dizziness Stated complaint: Dizziness Time Seen by Provider: 10/17/17 14:30 Source: patient, RN notes reviewed, old records reviewed Mode of arrival: wheelchair Limitations: no limitations - History of Present Illness Initial comments: This is a 67-year-old male the ER for evaluation of dizziness. Patient states does not feel well lightheaded dizzy and weak. Occasional diaphoresis and cold sweats. Patient did have recent surgery including recent placement of AICD and patient denies any chest pain. No significant shortness of breath, he is not feeling himself does not feel well. - Related Data Home Medications Medication Instructions Recorded Confirmed LORazepam [Ativan] 1 mg PO BID PRN 09/13/17 10/17/17 Simvastatin [Zocor] 40 mg PO HS 09/13/17 10/17/17 Tamsulosin HCl [Flomax] 0.4 mg PO DAILY 09/13/17 10/17/17 rOPINIRole HCL [Requip] 0.25 mg PO HS PRN 09/13/17 10/17/17 Apixaban [Eliquis] 5 mg PO BID 10/17/17 10/17/17 Previous Rx's Medication Instructions Recorded Metoprolol Succinate (ER) [Toprol 12.5 mg PO DAILY #45 tab 10/03/17 XL] Allergies Allergy/AdvReac Type Severity Reaction Status Date / Time Tetanus Vaccines and Toxoid Allergy passed out Verified 10/17/17 14:42 Review of Systems ROS Statement: Those systems with pertinent positive or pertinent negative responses have been documented in the HPI. ROS Other: All systems not noted in ROS Statement are negative. Past Medical History Past Medical History: Atrial Fibrillation, COPD, CVA/TIA, Hyperlipidemia, Hypertension, Osteoarthritis (OA), Syncope Additional Past Medical History / Comment(s): TIA 10 yrs. ago-no residual effects History of Any Multi-Drug Resistant Organisms: None Reported Past Surgical History: Appendectomy Additional Past Surgical History / Comment(s): cervical fusion October 2016, iván. cataract surg., blepharoplasty. DUAL PACEMAKER DDD 50-110 AND LEFT PNEUMOTHORAX 10/01/17 Past Anesthesia/Blood Transfusion Reactions: No Reported Reaction Type of Cardiac Device: Loop Device Placement Date:: 09/14/17 Past Psychological History: No Psychological Hx Reported Smoking Status: Former smoker Past Alcohol Use History: None Reported Past Drug Use History: Marijuana - Past Family History Mother Family Medical History: Cancer Father Family Medical History: CVA/TIA General Exam Limitations: no limitations General appearance: alert, in no apparent distress Head exam: Present: atraumatic, normocephalic, normal inspection Eye exam: Present: normal appearance, PERRL, EOMI. Absent: scleral icterus, conjunctival injection, periorbital swelling ENT exam: Present: normal exam, mucous membranes moist Neck exam: Present: normal inspection. Absent: tenderness, meningismus, lymphadenopathy Respiratory exam: Present: normal lung sounds bilaterally. Absent: respiratory distress, wheezes, rales, rhonchi, stridor Cardiovascular Exam: Present: regular rate, normal rhythm, normal heart sounds. Absent: systolic murmur, diastolic murmur, rubs, gallop, clicks GI/Abdominal exam: Present: soft, normal bowel sounds. Absent: distended, tenderness, guarding, rebound, rigid Extremities exam: Present: normal inspection, full ROM, normal capillary refill. Absent: tenderness, pedal edema, joint swelling, calf tenderness Back exam: Present: normal inspection Neurological exam: Present: alert, oriented X3, CN II-XII intact Psychiatric exam: Present: normal affect, normal mood Skin exam: Present: warm, dry, intact, normal color. Absent: rash Course Vital Signs 10/17/17 10/17/17 14:23 15:26 Temperature 98.6 F Pulse Rate 79 69 Respiratory 20 18 Rate Blood Pressure 143/82 140/88 O2 Sat by Pulse 96 98 Oximetry - Reevaluation(s) Reevaluation #1: 10/17/17 16:48 Dr. Carrera did evaluate patient in the emergency room, we did speak and interrogate his pacer, no abnormal rhythm was noted. Reevaluation #2: 10/17/17 16:48 Patient is a symptomatically currently EKG Findings - EKG Comments: EKG Findings:: EKG shows sinus rhythm rate of 73, IA 140, QRS 86, QTc 453 Medical Decision Making - Medical Decision Making 67 male the ER for evaluation, weakness and dizziness, recent pacemaker placement. Pacemaker is interrogated with no abnormalities, labwork is normal EKG and chest x-ray are normal. Patient can be discharged home as he is relatively symptomatically at this time - Lab Data Result diagrams: 10/17/17 14:44 10/17/17 14:44 Lab Results 10/17/17 10/17/17 10/17/17 Range/Units 14:44 14:44 14:44 WBC 9.9 (3.8-10.6) k/uL RBC 4.37 (4.30-5.90) m/uL Hgb 13.0 (13.0-17.5) gm/dL Hct 39.8 (39.0-53.0) % MCV 91.1 (80.0-100.0) fL MCH 29.8 (25.0-35.0) pg MCHC 32.7 (31.0-37.0) g/dL RDW 13.7 (11.5-15.5) % Plt Count 238 (150-450) k/uL Neutrophils % 76 % Lymphocytes % 15 % Monocytes % 6 % Eosinophils % 1 % Basophils % 0 % Neutrophils # 7.5 (1.3-7.7) k/uL Lymphocytes # 1.5 (1.0-4.8) k/uL Monocytes # 0.6 (0-1.0) k/uL Eosinophils # 0.1 (0-0.7) k/uL Basophils # 0.0 (0-0.2) k/uL PT (9.0-12.0) sec INR (<1.2) APTT (22.0-30.0) sec Sodium 140 (137-145) mmol/L Potassium 4.1 (3.5-5.1) mmol/L Chloride 103 (98-107) mmol/L Carbon Dioxide 24 (22-30) mmol/L Anion Gap 13 mmol/L BUN 17 (9-20) mg/dL Creatinine 0.70 (0.66-1.25) mg/dL Est GFR (CKD-EPI)AfAm >90 (>60 ml/min/1.73 sqM) Est GFR (CKD-EPI)NonAf >90 (>60 ml/min/1.73 sqM) Glucose 159 H (74-99) mg/dL Calcium 9.3 (8.4-10.2) mg/dL Phosphorus 3.4 (2.5-4.5) mg/dL Magnesium 1.9 (1.6-2.3) mg/dL Total Bilirubin 0.4 (0.2-1.3) mg/dL AST 28 (17-59) U/L ALT 34 (21-72) U/L Alkaline Phosphatase 78 (38-126) U/L Total Creatine Kinase 91 (55-170) U/L CK-MB (CK-2) 1.0 (0.0-2.4) ng/mL CK-MB (CK-2) Rel Index 1.1 Troponin I <0.012 (0.000-0.034) ng/mL Total Protein 6.4 (6.3-8.2) g/dL Albumin 4.0 (3.5-5.0) g/dL 10/17/17 Range/Units 14:44 WBC (3.8-10.6) k/uL RBC (4.30-5.90) m/uL Hgb (13.0-17.5) gm/dL Hct (39.0-53.0) % MCV (80.0-100.0) fL MCH (25.0-35.0) pg MCHC (31.0-37.0) g/dL RDW (11.5-15.5) % Plt Count (150-450) k/uL Neutrophils % % Lymphocytes % % Monocytes % % Eosinophils % % Basophils % % Neutrophils # (1.3-7.7) k/uL Lymphocytes # (1.0-4.8) k/uL Monocytes # (0-1.0) k/uL Eosinophils # (0-0.7) k/uL Basophils # (0-0.2) k/uL PT 9.9 (9.0-12.0) sec INR 1.0 (<1.2) APTT 24.4 (22.0-30.0) sec Sodium (137-145) mmol/L Potassium (3.5-5.1) mmol/L Chloride (98-107) mmol/L Carbon Dioxide (22-30) mmol/L Anion Gap mmol/L BUN (9-20) mg/dL Creatinine (0.66-1.25) mg/dL Est GFR (CKD-EPI)AfAm (>60 ml/min/1.73 sqM) Est GFR (CKD-EPI)NonAf (>60 ml/min/1.73 sqM) Glucose (74-99) mg/dL Calcium (8.4-10.2) mg/dL Phosphorus (2.5-4.5) mg/dL Magnesium (1.6-2.3) mg/dL Total Bilirubin (0.2-1.3) mg/dL AST (17-59) U/L ALT (21-72) U/L Alkaline Phosphatase (38-126) U/L Total Creatine Kinase (55-170) U/L CK-MB (CK-2) (0.0-2.4) ng/mL CK-MB (CK-2) Rel Index Troponin I (0.000-0.034) ng/mL Total Protein (6.3-8.2) g/dL Albumin (3.5-5.0) g/dL - Radiology Data Radiology results: report reviewed (Chest x-rays negative for acute disease), image reviewed Disposition Clinical Impression: Dizziness Disposition: HOME SELF-CARE Condition: Good Instructions: Dizziness (ED) Is patient prescribed a controlled substance at d/c from ED?: No Referrals: Petr Oliveira MD [Primary Care Provider] - 1-2 days
--- NOTE | 2017-10-17 15:10 | XR ---
EXAMINATION TYPE: XR chest 2V DATE OF EXAM: 10/17/2017 COMPARISON: Chest x-ray from yesterday. HISTORY: Weakness and dizziness. TECHNIQUE: Frontal and lateral views of the chest are obtained. FINDINGS: There is elevated left hemidiaphragm with left basilar linear scarring and/or atelectasis. Suspect stable small right pleural effusion or pleural thickening. There is no suspicious new focal a irspace opacity or pneumothorax seen. The cardiac silhouette size remains within normal limits with dual lead pacemaker. Fusion plate lower cervical spine is redemonstrated. IMPRESSION: Overall stable findings, elevated left hemidiaphragm with left basilar linear scarring a nd/or atelectasis and small right pleural effusion or pleural thickening. No new infiltrate is seen.
[2017-10-17 15:11] LABS: ALT 34 U/L (21-72); AST 28 U/L (17-59); Alkaline Phosphatase 78 U/L (38-126); Anion Gap 13 mmol/L; Blood Urea Nitrogen 17 mg/dL (9-20); Calcium 9.3 mg/dL (8.4-10.2); Carbon Dioxide 24 mmol/L (22-30); Chloride 103 mmol/L (98-107); Glucose 159 mg/dL (74-99); Magnesium 1.9 mg/dL (1.6-2.3); Phosphorus 3.4 mg/dL (2.5-4.5); Potassium 4.1 mmol/L (3.5-5.1); Sodium 140 mmol/L (137-145); Total Bilirubin 0.4 mg/dL (0.2-1.3); Total Protein 6.4 g/dL (6.3-8.2)
[2017-10-17 15:12] LABS: Basophils % (A) 0 %; Eosinophils # (A) 0.1 k/uL (0-0.7); Eosinophils % (A) 1 %; HCT 39.8 % (39.0-53.0); Lymphocytes # (A) 1.5 k/uL (1.0-4.8); Lymphocytes % (A) 15 %; MCH 29.8 pg (25.0-35.0); MCHC 32.7 g/dL (31.0-37.0); MCV 91.1 fL (80.0-100.0); Mean Platelet Volume 7.6; Monocytes # (A) 0.6 k/uL (0-1.0); Monocytes % (A) 6 %; Neutrophils # (A) 7.5 k/uL (1.3-7.7); Neutrophils % (A) 76 %; Partial Thromboplastin Time 24.4 sec (22.0-30.0); Platelet Count 238 k/uL (150-450); Prothrombin Time 9.9 sec (9.0-12.0); RBC 4.37 m/uL (4.30-5.90); RDW 13.7 % (11.5-15.5); WBC 9.9 k/uL (3.8-10.6)
[2017-10-17 15:13] LABS: Creatine Kinase 91 U/L (55-170)
[2017-10-17 15:26] LABS: Troponin I <0.012 ng/mL (0.000-0.034)
[2017-10-17 15:37] VITALS: PULSE 69
[2017-10-17 17:35] VITALS: BP 122/78; RESP 16; TEMP 98
== END 2017-10-17 17:45 | disposition home or self-care (01) ==
LOC: EC 14:17
DX: R42 Dizziness and giddiness (principal); R53.1 Weakness; I48.91 Unspecified atrial fibrillation; E78.5 Hyperlipidemia, unspecified; Z86.73 Personal history of transient ischemic attack (TIA), and cerebral infarction without residual deficits; Z95.0 Presence of cardiac pacemaker; Z87.891 Personal history of nicotine dependence; Z79.01 Long term (current) use of anticoagulants; Z79.899 Other long term (current) drug therapy; Z88.7 Allergy status to serum and vaccine
CPT/HCPCS: 36415; 71046; 80053; 82550; 82553; 83735; 84100; 84484; 85025; 85610; 85730; 93005; 93288; 96374; 99284

== ENCOUNTER → 2017-10-23 | Outpatient (CLI) | payer MEDICARE, BC ==
--- NOTE | 2017-10-23 14:36 | XR ---
EXAMINATION TYPE: XR chest 2V DATE OF EXAM: 10/23/2017 COMPARISON: Prior chest 10/17/2017 HISTORY: Lead placement TECHNIQUE: Frontal and lateral views of the chest are obtained. FINDINGS: There is been interval placement of a lead which courses to the level of the superior vena cava, loops in a cephalad direction. No pneumothorax or pleural effusion. No other significant ulloa e. IMPRESSION: Interval repositioning of the lead which now is within the superior vena cava as describ ed. A Yellow level critical message alert has been initiated for Flynn Aj MD via the [employer] Critical Results System on 10/23/2017 2:33 PM. This message alert has been sent to Flynn borjas MD via the preferences provided by the clinician for the receipt of Radiology Critical Findings. Message ID [id number].
== END | disposition home or self-care (01) ==
LOC: RADXRMAIN 10:25
PROVIDERS: ATTEND Internal Medicine Interventional Cardiology
DX: I49.5 Sick sinus syndrome (principal); Z45.018 Encounter for adjustment and management of other part of cardiac pacemaker
CPT/HCPCS: 71046

== ENCOUNTER 2017-10-25 06:12 | Day surgery (SDC) | payer MEDICARE, BC ==
[2017-10-24 08:27] VITALS: BMI 22.4
[~2017-10-25 06:12] MED LIST: SODIUM CHLORIDE 0.9% 1,000 ML IV SCH; ceFAZolin 1,000 MG in SODIUM CHLORIDE 0.9% IRRIGATIO 250 ML IRRIGATION ONE; ceFAZolin IN SWFI 2 GM/20 ML SYRINGE IVP ONE
[2017-10-25] MEDS ORDERED: IOPAMIDOL-250 50ML BTL IV ONE ×2 (07:29→07:46)
[2017-10-25] MEDS: MIDAZOLAM 2 MG/2 ML VIAL IV ONE ×2 (07:30→08:12)
[2017-10-25] MEDS ORDERED: LIDOCAINE 2% INJ 20 MG/ML (20 ML MDV) ONE (07:36)
[2017-10-25] MEDS ORDERED: MIDAZOLAM 2 MG/2 ML VIAL ONE (07:36)
[2017-10-25] MEDS ORDERED: fentaNYL (PF) 50 MCG/ML 2 ML AMP ONE (07:52)
[2017-10-25] MEDS: fentaNYL (PF) 50 MCG/ML 2 ML AMP IV ONE ×2 (07:54→08:01)
[2017-10-25] MEDS ORDERED: LIDOCAINE 2% INJ 20 MG/ML SQ ONE ×2 (07:56→08:15)
[2017-10-25] MEDS ORDERED: ACETAMINOPHEN TAB 325 MG TAB PO PRN (08:44)
[2017-10-25] MEDS ORDERED: LORazepam 1 MG TAB PO PRN (08:48)
--- NOTE | 2017-10-25 09:00 | P.PCN ---
Date of Procedure: 10/25/17 Preoperative Diagnosis: Dislodgment of the atrial lead Postoperative Diagnosis: Axillary venography, extraction of the existing atrial lead and insertion of a new atrial lead through a new venous access. Procedure(s) Performed: Revision of the pacemaker with insertion of new atrial lead through a new venous access. Removal of existing atrial lead and also axillary venography Description of Procedure: HISTORY: This is a 67-year-old gentleman with history of dual-chamber permanent pacemaker implantation. Patient had dislodgment of the atrial lead and had a repositioning. However the lead again dislodged. This is a tined lead. Patient is advised removal of the existing lead and insertion of a new screw-in lead, through new venous access. CONSENT:I have discussed the risks, benefits and alternative therapies for the above-mentioned procedure and for both sedation/analgesia as well as necessary blood product administration, if indicated, as they pertain to this patient. The patient has indicated understanding and acceptance of the risks and procedures discussed. PROCEDURE: Patient was brought to the lab in a fasting state. Patient was prepped and draped in the usual fashion. Patient was given IV sedation with fentanyl and Versed. The skin below the left clavicle was infiltrated with lidocaine. An incision was made parallel to the existing incision. The incision was deepened to the fascia and the device was pulled out of the pocket. The atrial lead was disconnected and was pulled out. Ventricular thresholds were stable. A new access was obtained in the lateral portion of the axillary vein. A 7-Lebanese sheath was advanced into the subclavian vein.. A new atrial lead was advanced and was placed in the superior vena cava. With help of a curved stylet, A satisfactory position was obtained and the lead was screwed in. Minimal patient threshold was about 0.7 at pulse width of 0.4. The lead was then sutured to the floor with stay sutures. The leads were then connected to the pulse generator. The threshold remains stable. The pocket was irrigated with antibiotic. The pocket was closed in the usual fashion. Patient tolerated the procedure well. Axillary venography was performed for delineation of the vein. Conscious Sedation: Versed 1.5mg Fentanyl 50 g Duration 40 minutes LEADS: ATRIAL: This is manufactured by [employer]. The model number is [id number]. The serial number is [id number]. VENTRICULAR: The ventricular lead is manufactured by [employer]. Model number is [id number]. Serial number is [id number]: THE DEVICE: This is manufactured by [employer]. Model number is 2272. Serial number is [id number] The ventricular lead is maneuvered l with help of a straight and curved stylets into the left ventricle apical region. Satisfactory position was obtained and threshold measurements were made. The atrial lead was then maneuvered into the right atrial appendage. And thresholds were obtained. THRESHOLDS: ATRIUM: The minimal patient threshold is 0.5 V at pulse width of 0.4 ms. The P-wave is 4.4 mV. The lead impedance is 9 and 30 ohms VENTRICLE: The minimal patient threshold was 0.75 V at pulse width of 0.4 ms. R-wave: 12 mV. The impedance is 490 ohms The leads and pulse generator remained in the pocket after it was washed with antibiotics. Pocket was closed in the usual fashion. The fascia was closed with 2-0 Prolene ,the subcutaneous tissue was closed with 3-0 Prolene and the skin was closed with 4-0 Prolene. PROGRAMMING: MODE: DDD RATE: 50- 110 OUTPUT: Atrium : 3.5 Ventricle: 3.5 V FINAL IMPRESSION: #1 axillary venography #2. Extraction of the existing atrial lead #3. Insertion of a new atrial lead with a new venous access COMPLICATIONS: None PLAN: Patient will be continued on prophylactic antibiotics. Patient will be monitored on the telemetry unit. Chest x-ray in the morning. If stable patient be discharged home in the morning.
[2017-10-25] MEDS: METOPROLOL SUCCINATE (ER) 25 MG TAB.ER.24H PO SCH (10:06)
[2017-10-25] MEDS: HYDROcodone/APAP 5-325MG 1 EACH TAB PO PRN ×3 (10:10→21:22)
[2017-10-25] MEDS: TAMSULOSIN 0.4 MG CAP.ER.24H PO SCH (10:10)
--- NOTE | 2017-10-25 14:07 | XR ---
EXAMINATION TYPE: XR chest 1V DATE OF EXAM: 10/25/2017 COMPARISON: Prior chest x-ray 10/21/2017 HISTORY: Lead revision TECHNIQUE: Single frontal view of the chest is obtained. FINDINGS: There is been interval change in position of the lead which was overlying the superior randal a cava and now present within the right atrium. Patchy basilar atelectatic changes are present. No ev ident pneumothorax. No significant change. IMPRESSION: Interval lead revision
[2017-10-25] MEDS: ceFAZolin IN SWFI 2 GM/20 ML SYRINGE IVP SCH ×2 (14:13→19:46)
[2017-10-25] MEDS ORDERED: ATORVASTATIN 20 MG TAB PO SCH (21:00)
[2017-10-25 23:16] VITALS: RESP 18
[2017-10-26] MEDS: ceFAZolin IN SWFI 2 GM/20 ML SYRINGE IVP SCH ×2 (01:38→08:23)
[2017-10-26] MEDS: HYDROcodone/APAP 5-325MG 1 EACH TAB PO PRN ×2 (01:46→09:07)
--- NOTE | 2017-10-26 08:16 | XR ---
EXAMINATION TYPE: XR chest 2V DATE OF EXAM: 10/26/2017 COMPARISON: Prior chest x-ray 10/25/2017 HISTORY: Lead placement check TECHNIQUE: Frontal and lateral views of the chest are obtained. FINDINGS: Generator is in the left pectoral region, there are leads in the right atrium and ventricl e. Patchy basilar density is present on the left greater than right. There is no evident pneumothorax . Postop change again noted in the cervical spine. No sizable effusion. Cardiomediastinal silhouette, pulmonary vascularity and kartik are not significantly changed. Patient is rotated. IMPRESSION: Probable basilar atelectasis. Follow-up as indicated.
--- NOTE | 2017-10-26 08:45 | P.DS ---
Providers Date of admission: 10/25/2014 Attending physician: Pebbles Carrera Primary care physician: Petr Oliveira - Discharge Diagnosis(es) (1) History of hypertension Current Visit: No Status: Acute (2) History of syncope Current Visit: No Status: Acute (3) Pacemaker displacement Current Visit: No Status: Acute (4) Paroxysmal atrial fibrillation Current Visit: No Status: Acute Hospital Course: This is 67-year-old gentleman is admitted for revision of the atrial lead because of dislodgment of the time lead. Patient had insertion of a new screw- in lead to a new venous access in the lateral portion of the axillary vein. Patient had excellent threshold and the remainder excellent today. Chest x-ray did not reveal any evidence of her pneumothorax. Lead position appears to good. Patient is feeling well. The pacemaker site appears to be free of any hematoma. Lungs are clear. Heart is regular. Patient is completing his antibiotics. Patient will be discharged home after completion of antibiotic therapy. Patient will follow the usual instructions for the post pacemaker insertion. He is also given prophylactic antibiotics in the form of Keflex. Follow-up with Dr. ANAY Aj in one week. Plan - Discharge Summary Discharge Rx Participant: Yes New Discharge Prescriptions: New Cephalexin [Keflex] 500 mg PO Q8HR 10 Days #10 cap Continue rOPINIRole HCL [Requip] 0.25 mg PO HS PRN PRN Reason: restless leg Simvastatin [Zocor] 40 mg PO HS LORazepam [Ativan] 1 mg PO BID PRN PRN Reason: Anxiety Tamsulosin HCl [Flomax] 0.4 mg PO DAILY Metoprolol Succinate (ER) [Toprol XL] 12.5 mg PO DAILY #45 tab Discontinued Apixaban [Eliquis] 5 mg PO BID Discharge Medication List LORazepam [Ativan] 1 mg PO BID PRN 09/13/17 [History] Simvastatin [Zocor] 40 mg PO HS 09/13/17 [History] Tamsulosin HCl [Flomax] 0.4 mg PO DAILY 09/13/17 [History] rOPINIRole HCL [Requip] 0.25 mg PO HS PRN 09/13/17 [History] Metoprolol Succinate (ER) [Toprol XL] 12.5 mg PO DAILY #45 tab 10/03/17 [Rx] Cephalexin [Keflex] 500 mg PO Q8HR 10 Days #10 cap 10/26/17 [Rx] Follow up Appointment(s)/Referral(s): Flynn Aj MD [STAFF PHYSICIAN] - 11/02/17 3:30 pm Discharge Disposition: HOME SELF-CARE
[2017-10-26] MEDS: METOPROLOL SUCCINATE (ER) 25 MG TAB.ER.24H PO SCH (09:03)
[2017-10-26] MEDS: TAMSULOSIN 0.4 MG CAP.ER.24H PO SCH (09:03)
[2017-10-26 09:15] VITALS: BP 110/68; PULSE 72; TEMP 97.2
== END 2017-10-26 12:30 | disposition home or self-care (01) ==
LOC: CATHEP 06:12 → 3OBS 08:51 → 6SEL 23:08 → CATHEP 10-26 12:30
PROVIDERS: ATTEND Internal Medicine Cardiovascular Disease
DX: T82.128A Displacement of other cardiac electronic device, initial encounter (principal); I49.3 Ventricular premature depolarization; I48.0 Paroxysmal atrial fibrillation; I10 Essential (primary) hypertension; E78.5 Hyperlipidemia, unspecified; R55 Syncope and collapse; Z82.49 Family history of ischemic heart disease and other diseases of the circulatory system; Z79.01 Long term (current) use of anticoagulants; Z79.899 Other long term (current) drug therapy; Z86.73 Personal history of transient ischemic attack (TIA), and cerebral infarction without residual deficits; Z88.7 Allergy status to serum and vaccine; Z87.891 Personal history of nicotine dependence
CPT/HCPCS: 33216; 33234; 71045; 71046; C1769 ×2; C1892; C1898; J2001; J2250; J0690 ×3; J3010; Q9966

== ENCOUNTER → 2018-01-26 | Outpatient (CLI) | payer MEDICARE, BC ==
[2018-01-26 11:14] LABS: Basophils % (A) 0 %; Eosinophils # (A) 0.1 k/uL (0-0.7); Eosinophils % (A) 1 %; HCT 41.2 % (39.0-53.0); HGB 13.8 gm/dL (13.0-17.5); Lymphocytes # (A) 1.6 k/uL (1.0-4.8); Lymphocytes % (A) 18 %; MCH 31.3 pg (25.0-35.0); MCHC 33.5 g/dL (31.0-37.0); MCV 93.5 fL (80.0-100.0); Monocytes # (A) 0.7 k/uL (0-1.0); Monocytes % (A) 7 %; Neutrophils # (A) 6.3 k/uL (1.3-7.7); Neutrophils % (A) 71 %; Platelet Count 293 k/uL (150-450); RDW 13.6 % (11.5-15.5); WBC 8.9 k/uL (3.8-10.6)
[2018-01-26 11:28] LABS: INR 1.1 (<1.2); Prothrombin Time 10.3 sec (9.0-12.0)
[2018-01-26 11:33] LABS: Anion Gap 9 mmol/L; Blood Urea Nitrogen 14 mg/dL (9-20); Carbon Dioxide 22 mmol/L (22-30); Chloride 107 mmol/L (98-107); Potassium 4.5 mmol/L (3.5-5.1); Sodium 138 mmol/L (137-145)
== END | disposition home or self-care (01) ==
LOC: LABPAT 10:47
PROVIDERS: ATTEND Thoracic Surgery (Cardiothoracic Vascular Surgery)
DX: Z01.812 Encounter for preprocedural laboratory examination (principal); I49.5 Sick sinus syndrome
CPT/HCPCS: 36415; 80051; 82565; 84520; 85025; 85610; 86850; 86900; 86901

== ENCOUNTER 2018-02-06 06:39 | Day surgery (SDC) | payer MEDICARE, BC ==
[2018-01-30 10:12] VITALS: BMI 22.4
[~2018-02-06 06:39] MED LIST changes: -SODIUM CHLORIDE 0.9% 1,000 ML IV SCH; -ceFAZolin 1,000 MG in SODIUM CHLORIDE 0.9% IRRIGATIO 250 ML IRRIGATION ONE
[2018-02-06] MEDS ORDERED: LACTATED RINGERS 1,000 ML IV ONE (07:12)
[2018-02-06] MEDS ORDERED: LIDOCAINE 1% 20 ML VIAL (10MG/ML) FOR IV START INTRADERMA ONE (07:13)
[2018-02-06] MEDS ORDERED: PROPOFOL 10 MG/ML 20 ML VIAL IV ONE (08:49)
[2018-02-06] MEDS ORDERED: MIDAZOLAM 2 MG/2 ML VIAL ONE (08:49)
[2018-02-06] MEDS ORDERED: fentaNYL (PF) 50 MCG/ML 2 ML AMP ONE (08:49)
[2018-02-06] MEDS ORDERED: KETAMINE 10 MG/ML 20 ML VIAL ONE (08:49)
[2018-02-06] MEDS ORDERED: LIDOCAINE 1% INJ 10MG/ML (20 ML MDV) SQ ONE ×2 (09:18)
--- NOTE | 2018-02-06 09:54 | FL ---
EXAMINATION TYPE: FL guidance operating room DATE OF EXAM: 02/06/2018 HISTORY: Flouroscopy time 1 minute and 9 seconds of fluoroscopy provided. IMPRESSION: 1. Fluoroscopy time.
[2018-02-06] MEDS ORDERED: LORazepam 1 MG TAB PO PRN (10:46)
[2018-02-06] MEDS ORDERED: ACETAMINOPHEN TAB 325 MG TAB PO PRN (10:48)
--- NOTE | 2018-02-06 11:15 | XR ---
EXAMINATION TYPE: XR chest 1V portable DATE OF EXAM: 02/06/2018 COMPARISON: 10/26/2017 INDICATION: Lead placement check TECHNIQUE: Single frontal view of the chest is obtained. FINDINGS: The heart size is normal. The pulmonary vasculature is normal. There is some streak opacity at the left diaphragm likely atelectasis. There is a pacemaker over the left chest and shoulder. Lead placement appears. IMPRESSION: 1. Left basilar atelectasis. 2. No pneumothorax post pacemaker lead adjustment.
--- NOTE | 2018-02-06 11:58 | PCN ---
PROCEDURE NOTE DATE OF SERVICE: 02/06/2018 PROCEDURE: Dual-chamber pacemaker from left infraclavicular approach. PERFORMED BY: Dr. Demar Bolanos, assisted by Dr. Nathan Aj. CLINICAL INFORMATION: Mr. Serge Beltran is a gentleman with a known history of sick sinus syndrome with several long symptomatic pauses. He has had a previous permanent pacemaker placed. The atrial lead had to be repositioned twice and then there was infection in the pocket. The device was explanted and after antibiotics for nearly 4-6 weeks, making sure there was no additional infection, he was brought in for the procedure electively to be performed from the left site. PROCEDURE NOTE: Under local anesthesia and strict aseptic precautions, a 2-1/2 incision was made parallel and inferior to the left clavicle in the lateral aspect. Two access points were obtained into the left subclavian vein. A surgical pocket was performed by Dr. Bolanos. Under fluoroscopic guidance, both atrial and ventricular leads were positioned. Good thresholds and sensitivities were obtained. Both the leads were screwed in and secured to the underlying muscle. Diaphragmatic pacing was checked with 10 V for both leads. Excellent numbers were noted. The leads were then connected to the pulse generator and the pulse generator was secured to the underlying muscle. The pulse generator was placed in the pocket and the wound was closed in 2 layers. Excellent hemostasis was secured. Patient tolerated the procedure well. PACEMAKER DETAILS: The pulse generator creping machine operator is [employer], model is issue MRI 2272 pacemaker with serial #[id number], date of implant February 06. Atrial lead creping machine operator is [employer], model Tendril ST [employer] 1882 PC/52 cm, serial #[id number]. VENTRICULAR LEAD: [employer] model Tendril STS 2088 TC 58 cm, serial #[id number]. Atrial threshold was 0.7 V at 0.4 milliseconds. P waves were 4.7 mV. Impedance was 400 ohms, ventricular lead threshold was 0.5 V at 0.4 milliseconds. R-waves are more than 12.0 mV. Lead impedance was 640 ohms. Pacemaker was set at low rate of 50, high rate of 110, paced AV delay of 275 milliseconds, sensed AV delay of 250 milliseconds. Patient tolerated the procedure well without complications. MMODL / IJN: [id number] /
[2018-02-06] MEDS: TAMSULOSIN 0.4 MG CAP.ER.24H PO SCH (13:35)
[2018-02-06] MEDS: ceFAZolin IN SWFI 2 GM/20 ML SYRINGE IVP SCH ×2 (15:09→21:16)
[2018-02-06] MEDS: HYDROcodone/APAP 5-325MG 1 EACH TAB PO PRN ×2 (15:40→21:15)
[2018-02-06] MEDS ORDERED: ATORVASTATIN 20 MG TAB PO SCH (21:00)
[2018-02-06] MEDS: APIXABAN 5 MG TAB PO SCH (21:15)
[2018-02-07] MEDS: HYDROcodone/APAP 5-325MG 1 EACH TAB PO PRN ×2 (03:17→08:20)
[2018-02-07] MEDS ORDERED: ceFAZolin IN SWFI 2 GM/20 ML SYRINGE IVP ONE (07:07)
--- NOTE | 2018-02-07 07:51 | DS ---
DISCHARGE SUMMARY DATE OF ADMISSION: 02/06/2018. DATE OF DISCHARGE: 02/07/2018. DIAGNOSIS: Syncope with significant pauses with underlying sick sinus syndrome. Mr. Serge Beltran is a 67-year-old gentleman with a history of syncope, paroxysmal atrial fibrillation, who was seen by me over the last several months. He had a permanent pacemaker placed, which had issues with dislodgement of the atrial lead requiring repositioning on 2 occasions and then there was infection on the pacemaker generator site. The generator was explanted. He was treated with antibiotics and after the infection was cleared, he was brought in for the procedure electively. Dr. Bolanos and I performed a permanent pacemaker placement from the left infraclavicular approach. The pacemaker procedure was performed uneventfully. The thresholds and sensitivities of both leads were excellent. This morning again the device has been checked and is functioning very well. The pacemaker site is clean and dry. Blood pressure is 128/70. Pulse rate is about 60 per minute. The patient is doing remarkably well this morning. He is asymptomatic. The site is clean and dry. His chest x-ray postprocedure was good and he is going to have a repeat chest x-ray today prior to discharge. His Eliquis 5 mg b.i.d. has been resumed. We will also resume Lopressor 12.5 mg b.i.d. He will be discharged on his current medical regimen and I will see him in the office on February 14 at 10:30 a.m. for a pacer check and office visit. Vital signs are stable. S1, S2 heard normally. Lungs are clear. Abdomen is soft, nontender. Lower extremities reveal diminished pulses. No edema. Central nervous system is normal. Pacemaker site is clean and dry. Discharge instructions regarding the pacemaker care were also given. MMODL / IJN: [id number] /
--- NOTE | 2018-02-07 08:06 | XR ---
EXAMINATION TYPE: XR chest 2V DATE OF EXAM: 02/07/2018 COMPARISON: Prior chest 02/06/2018 HISTORY: Lead placement TECHNIQUE: Frontal and lateral views of the chest are obtained. FINDINGS: Generator is in the left pectoral region, there are leads in the right atrium and ventricl e as on previous. Stopped changes noted to the cervical spine. No evident pneumothorax or pleural eff usion. Strand-like densities persist at the lung bases. Prominent lung volume may be indicative of un derlying COPD. Cardiomediastinal silhouette, pulmonary vascularity and kartik within normal limits acco unting for patient rotation. May be spinal curvature, scoliosis. IMPRESSION: Essentially stable findings. Probable basilar atelectasis or scarring.
[2018-02-07] MEDS: TAMSULOSIN 0.4 MG CAP.ER.24H PO SCH (08:18)
[2018-02-07] MEDS: APIXABAN 5 MG TAB PO SCH (08:18)
[2018-02-07 08:57] VITALS: BP 132/89; PULSE 77; RESP 18; TEMP 97.3
[2018-02-07] MEDS ORDERED: TAMSULOSIN 0.4 MG CAP.ER.24H PO SCH (09:00)
[2018-02-07] MEDS ORDERED: METOPROLOL TARTRATE 12.5 MG TAB PO SCH (09:00)
== END 2018-02-07 10:30 | disposition home or self-care (01) ==
LOC: OR 06:39 → EDSTATUS 08:00 → 3OBS 09:52 → OR 02-07 10:30
PROVIDERS: ATTEND Internal Medicine Interventional Cardiology
DX: I49.5 Sick sinus syndrome (principal); I42.9 Cardiomyopathy, unspecified; I48.0 Paroxysmal atrial fibrillation; E78.5 Hyperlipidemia, unspecified; Z79.01 Long term (current) use of anticoagulants; Z79.899 Other long term (current) drug therapy; Z88.7 Allergy status to serum and vaccine; Z86.73 Personal history of transient ischemic attack (TIA), and cerebral infarction without residual deficits
CPT/HCPCS: 71045; 71046; 33208; J2250; J2001; J3010; J2704; J0690 ×2; 86850; 86900; 86901

== ENCOUNTER → 2018-11-20 | Outpatient (CLI) | payer MEDICARE, BC ==
--- NOTE | 2018-11-20 14:07 | US ---
EXAMINATION TYPE: US venous doppler duplex UE LT DATE OF EXAM: 11/20/2018 COMPARISON: NONE CLINICAL HISTORY: Z95.0 Presence of cardiac pacemaker. Pt states pain left arm/ has pacemaker SIDE PERFORMED: Left Left Arm: Negative for DVT IMPRESSION: 1. No diagnostic evidence of DVT as visualized.
== END | disposition home or self-care (01) ==
LOC: RADUSWWP 13:33
PROVIDERS: ATTEND Internal Medicine Interventional Cardiology
DX: I82.B12 Acute embolism and thrombosis of left subclavian vein (principal)

== ENCOUNTER → 2024-11-11 | Outpatient (CLI) | payer MEDICARE ==
[2024-11-11 15:32] LABS: Prostate Specific Antigen 4.92 ng/mL (0.000-6.500)
[2024-11-13 07:17] LABS: Gamma Globulin 1.02 g/dL (0.70-1.50)
== END | disposition home or self-care (01) ==
LOC: LABWHC1 10:36
PROVIDERS: ATTEND Psychiatry & Neurology Neurology
DX: C61 Malignant neoplasm of prostate (principal); G62.9 Polyneuropathy, unspecified
CPT/HCPCS: 36415; 82306; 82607; 84153; 84165; 84207; 85652; 86038; 86334